=== PATIENT | male | born 1995 | race Caucasian/White ===

== ENCOUNTER 2016-10-04 02:23 | Emergency (ER) ==
[2016-10-04 02:31] VITALS: BP 153/80
[2016-10-04] MEDS ORDERED: NAPROSYN PO ONE (02:47)
--- NOTE | 2016-10-04 02:53 | PROVIDER DOCUMENTATION ---
HPI-Musculoskeletal Pain/Inj - GENERAL Chief Complaint: Extremity Pain Stated Complaint: RT WRIST INJ Time Seen by Provider: 10/04/16 02:41 Source: patient - HX OF PRESENT ILLNESS-MUSKULOSKELTAL Nature of Presenting Problem: Pt is a 21 yom who presents to ER with CC of R wrist pain. Pt reports that he was working outside [employer], cutting wood with a bandsaw, and after pt got off work he noticed that his R wrist hurt, and is worsened when moving his R thumb and index finger. Quality of Pain: reports: sharp Severity in ED: mild Onset/Duration: 1-3 hours ago Timing: still present Modifying Factors: improves with: immobilization. worse with: movement - UPPER EXTREMITY PAIN/INJURY Extremities Pain Location: wrist: right Associated Symptoms: reports: other (pain when moving thumb or index finger; wrist pain) Review of Systems - Adult - REVIEW OF SYSTEMS - ADULT Constitutional: denies: chills, fever, fatique Eyes: reports: no symptoms reported Ears, Nose, Mouth & Throat: reports: no symptoms reported Cardiovascular: reports: no symptoms reported Respiratory: reports: no symptoms reported Gastrointestinal: reports: no symptoms reported Genitourinary: reports: no symptoms reported Musculoskeletal: reports: other (R wrist pain). denies: joint pain, muscle aches, muscle weakness Integumentary: reports: no symptoms reported Neurological: reports: no symptoms reported Psychiatric: reports: no symptoms reported Endocrine: reports: no symptoms reported Hematologic/Lymphatic: reports: no symptoms reported Allergic/Immunologic: reports: no symptoms reported All Other Systems: Reviewed and Negative Past History - Adult - PAST MEDICAL HISTORY-ADULT Review of Records: reports: Nursing Assessment Review, Medications Reviewed - IMMUNIZATION STATUS Childhood Immunizations: See Nurse Assessment Flu Vaccine: See Nurse Assessment Physical Exam-Injury Related - Physical Exam-Injury Related Initial Vital Signs Reviewed: Yes General Appearance: appears well, alert, mild distress Neck: non-tender, full range of motion, supple Respiratory: chest non-tender, lungs clear, normal breath sounds Cardiovascular: normal peripheral pulses, regular rate, rhythm Lymphatic: no adenopathy Back Exam: no CVA tenderness, no vertebral tenderness Extremity: swelling, tenderness (R wrist) Integumentary: normal color, warm/dry, blanching Neurologic: grossly normal, no motor/sensory deficits Psych/Mental Status: normal mood/affect, normal thought content, normal thought process, oriented x 3 Progress - PLAN OF CARE/RESULTS Progress/Plan/Lab Results: Vital Signs - 24 hr 10/04/16 02:27 Temperature 97.5 F L Pulse Rate 77 Respiratory 18 Rate Blood Pressure 153/80 O2 Sat by Pulse 100 Oximetry Orders Category Date Time Status Wrist Splint DIRECTED Care 10/04/16 02:48 Active WRIST COMPLETE RIGHT [RAD] Stat Exams 10/04/16 02:35 Ordered Naproxen [Naprosyn] Med 10/04/16 02:47 Discontinued 500 mg PO NOW ONE Departure - Departure Time of Disposition Order: 02:52 DIAGNOSIS: Tendonitis of right hand Disposition: HOME 01 Certified Medical Emergency: Emergent Condition: Stable Additional Instructions: ED Follow Up Instructions: You have been treated by a care provider in the Emergency Department. These instructions are being provided to you so you can have an understanding of how to care for yourself upon discharge. Upon discharge from the Emergency Department, you are responsible for making arrangements for follow-up care by a physician of your choice. Take all prescribed medications as directed. Return to the Emergency Department immediately for any new or worsening symptoms. You may call the Physician Referral phone number at [phone] to obtain a list of Physicians who are taking new patients. Prescriptions: Naproxen 500 mg PO BID AC #20 tablet Referrals: None,PCP [Primary Care Provider] - Attestation - Scribe Verification/Attestation Scribe:: Osvaldo Viera Acting as Scribe for:: Bill Rapp Scribe documention review:: This chart was documented by a scribe and accurately reflects the service the provider performed and the decisions made by the provider.
== END 2016-10-04 03:12 | disposition home or self-care (01) ==
LOC: ED 02:23
DX: M77.9 Enthesopathy, unspecified (principal); M25.531 Pain in right wrist
CPT/HCPCS: 99282